=== PATIENT | female | born 1995 | race American Indian/Alaskan Native ===

== ENCOUNTER 2017-07-02 16:23 | Outpatient (CLI) | payer MEDICAID ==
[2017-07-02] MEDS ORDERED: LACTATED RINGERS 500 ML IV ONE (17:13)
[2017-07-02 18:53] VITALS: BP 105/55
[2017-07-02 19:46] LABS: Bilirubin,Urine NEG (Negative); Blood,Urine MOD (Negative); Ketones,Urine 20 mg/dL (Negative); Leukocyte Esterase,Urine TR (Negative); Mucus,Urine FEW /HPF; Nitrite,Urine NEG (Negative); Protein,Urine <15 mg/dL mg/dL (Negative)
== END 2017-07-02 20:15 | disposition home or self-care (01) ==
LOC: TRG 16:23
PROVIDERS: ATTEND Obstetrics & Gynecology Gynecology
DX: O47.02 False labor before 37 completed weeks of gestation, second trimester (principal); Z3A.24 24 weeks gestation of pregnancy
CPT/HCPCS: 59025; 81001; 96360; J7120

== ENCOUNTER 2017-08-19 23:21 | Outpatient (CLI) | payer MEDICAID ==
--- NOTE | 2017-08-19 22:40 | Emergency Department Report ---
ED Abdominal Pain HPI - General Chief Complaint: Dyspnea/Respdistress Stated Complaint: LUDY/CP Time Seen by Provider: 08/19/17 22:32 Source: patient, EMS Mode of arrival: Stretcher Limitations: No Limitations - History of Present Illness Initial Comments: 21-year-old female currently 30 weeks presents to the hospital without a pain and shortness of breath. Symptoms started prior to arrival. Patient felt pain and pressure in her epigastric area followed by pressure and pain under both ribs that felt like a "knot" with shortness of breath during pain episode. EMS reported chest pain but patient states symptoms started in her abdomen first. Patient states that her ribs feels sore after this episode. She no longer feels short of breath and denies any preceding shortness of breath , calf tenderness, leg edema, leg asymmetry, recent travel, history of PE/DVT. 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[place] [employer] - Related Data Previous Rx's Medication Instructions Recorded Last Taken Type Vit-Fe Fumar-FA [ 1 each PO QDAY #90 tablet 06/30/14 11/06/14 20:00 Rx Vitamin] 1 tab Promethazine [Phenergan] 25 mg PO Q6H PRN #20 tablet 06/30/14 Unknown Rx Ferrous Sulfate [Feosol 325 MG tab] 325 mg PO BID #60 tablet 02/13/15 Unknown Rx Ibuprofen [Motrin 800 MG tab] 800 mg PO Q8HR PRN #30 tablet 02/13/15 Unknown Rx Prenat 115/Iron Fum/Folic/Dss 1 tab PO QDAY #30 tab 02/13/15 Unknown Rx [ 19 Tablet] Allergies Allergy/AdvReac Type Severity Reaction Status Date / Time latex Allergy Rash Verified 08/19/17 22:20 ED Review of Systems ROS: Stated complaint: LUDY/CP Other details as noted in HPI Comment: All other systems reviewed and negative Other: Constitutional: No fevers chills Eyes: No eye pain visual changes or discharge ENT: No ear pain or throat pain Neck: Denies pain Respiratory: as per hpi Cardiovascular: as per hpi GI: Denies nausea, vomiting, diarrhea, constipation, melena hematochezia : Denies dysuria Musculoskeletal: Denies back pain, joint swelling Skin: Denies rash, lesions, erythema Neurologic: Denies headache, numbness, weakness Psychiatric: Denies suicidal ideation, hallucinations Hematological/lymphatic: Denies easy bruising, lymphadenopathy ED Past Medical Hx - Past Medical History Previous Medical History?: Yes Hx Hypertension: No Hx Heart Attack/AMI: No Hx Congestive Heart Failure: No Hx Diabetes: No Hx Deep Vein Thrombosis: No Hx Renal Disease: No Hx Sickle Cell Disease: No Hx Seizures: No Hx Asthma: No Hx COPD: No Hx HIV: No Additional medical history: 4 spontanious abortions - Social History Smoking Status: Never Smoker Substance Use Type: Prescribed - Medications Home Medications: Home Medications Medication Instructions Recorded Confirmed Last Taken Type Vit-Fe Fumar-FA [ 1 each PO QDAY #90 tablet 06/30/14 01/16/15 11/06/14 20:00 Rx Vitamin] 1 tab Promethazine [Phenergan] 25 mg PO Q6H PRN #20 tablet 06/30/14 01/16/15 Unknown Rx Ferrous Sulfate [Feosol 325 MG tab] 325 mg PO BID #60 tablet 02/13/15 Unknown Rx Ibuprofen [Motrin 800 MG tab] 800 mg PO Q8HR PRN #30 tablet 02/13/15 Unknown Rx Prenat 115/Iron Fum/Folic/Dss 1 tab PO QDAY #30 tab 02/13/15 Unknown Rx [ 19 Tablet] ED Physical Exam - General Limitations: No Limitations - Other Other exam information: General: No limitations, patient is alert in no acute distress Head exam: Atraumatic, normocephalic Eyes exam: Normal appearance ENT: Moist mucous membrane, normal oropharynx Neck exam: Normal inspection Respiratory exam: Clear to auscultation bilateral, no wheezes, rales, crackles Cardiovascular: Normal rate and rhythm, normal heart sounds Abdomen: abdomen, mild right upper quadrant tenderness, no rebound or guarding Extremity: Full range of motion normal inspection no deformity, no calf tenderness or edema Back: Normal Inspection, full range of motion, no tenderness Neurologic: Alert, oriented x3, cranial nerves intact, no motor or sensory deficit Psychiatric: normal affect, normal mood Skin: Bruising to epigastric area the patient has been present but expanding ED Course Vital Signs 08/19/17 22:20 Temperature 98.2 F Pulse Rate 88 Respiratory 19 Rate Blood Pressure 106/64 O2 Sat by Pulse 98 Oximetry - Reevaluation(s) Reevaluation #1: 08/19/17 22:44 I initiated workup based on his complaint of shortness of breath and chest pain. Patient states that she feels like the pain pain from her stomach and the baby and prefers to go to labor and delivery for monitoring instead versus being in the ED first. I called Dr Staley to discuss workup and he accept pt to be sent to L and D Labs pending. EKG preformed prior to L and D transfer, Vital signs reviewed and in normal range. Pt denies cp or sob at this time - Consultations Consultation #1: 08/20/17 00:50 Case we discussed with Dr. Staley at this time. Patient is a L&D and received terbutaline was caused a heart rate increase. She was diagnosed with contractions and received IV fluids with improvement in symptoms as well. She is being discharged from labor and delivery and is also discharged from our department. ED Medical Decision Making - Lab Data Result diagrams: 08/19/17 22:41 08/19/17 22:41 Lab Results 08/19/17 08/19/17 08/19/17 Range/Units 00:07 22:41 22:41 WBC 15.4 H (4.5-11.0) K/mm3 RBC 3.51 L (3.65-5.03) M/mm3 Hgb 9.4 L (10.1-14.3) gm/dl Hct 29.4 L (30.3-42.9) % MCV 84 (79-97) fl MCH 27 L (28-32) pg MCHC 32 (30-34) % RDW 16.1 H (13.2-15.2) % Plt Count 315 (140-440) K/mm3 Lymph % (Auto) 18.6 (13.4-35.0) % [place] % (Auto) 5.9 (0.0-7.3) % Eos % (Auto) 1.0 (0.0-4.3) % Baso % (Auto) 0.2 (0.0-1.8) % Lymph # 2.8 (1.2-5.4) K/mm3 [place] # 0.9 H (0.0-0.8) K/mm3 Eos # 0.2 (0.0-0.4) K/mm3 Baso # 0.0 (0.0-0.1) K/mm3 Seg Neutrophils % 74.3 H (40.0-70.0) % Seg Neutrophils # 11.4 H (1.8-7.7) K/mm3 PT (12.2-14.9) Sec. INR (0.87-1.13) APTT (24.2-36.6) Sec. Sodium 135 L (137-145) mmol/L Potassium 3.6 (3.6-5.0) mmol/L Chloride 98.3 (98-107) mmol/L Carbon Dioxide 20 L (22-30) mmol/L Anion Gap 20 mmol/L BUN 8 (7-17) mg/dL Creatinine 0.5 L (0.7-1.2) mg/dL Estimated GFR > 60 ml/min BUN/Creatinine Ratio 16 % Glucose 119 H (65-100) mg/dL Calcium 8.6 (8.4-10.2) mg/dL Total Bilirubin 0.30 (0.1-1.2) mg/dL AST 34 (5-40) units/L ALT 15 (7-56) units/L Alkaline Phosphatase 65 (35-129) units/L Total Creatine Kinase 47 (30-135) units/L CK-MB (CK-2) < 1.0 (0.0-4.0) ng/mL CK-MB (CK-2) Rel Index 2.1 (0-4) Troponin T < 0.010 (0.00-0.029) ng/mL NT-Pro-B Natriuret Pep 37.81 (0-450) pg/mL Total Protein 5.9 L (6.3-8.2) g/dL Albumin 3.2 L (3.9-5) g/dL Albumin/Globulin Ratio 1.2 % Urine Color Yellow (Yellow) Urine Turbidity Clear (Clear) Urine pH 7.0 (5.0-7.0) Ur Specific [place] 1.011 (1.003-1.030) Urine Protein <15 mg/dl (Negative) mg/dL Urine Glucose (UA) Neg (Negative) mg/dL Urine Ketones Neg (Negative) mg/dL Urine Blood Mod (Negative) Urine Nitrite Neg (Negative) Urine Bilirubin Neg (Negative) Urine Urobilinogen 4.0 (<2.0) mg/dL Ur Leukocyte Esterase Tr (Negative) Urine WBC (Auto) 4.0 (0.0-6.0) /HPF Urine RBC (Auto) 3.0 (0.0-6.0) /HPF U Epithel Cells (Auto) 11.0 (0-13.0) /HPF 08/19/17 Range/Units 22:41 WBC (4.5-11.0) K/mm3 RBC (3.65-5.03) M/mm3 Hgb (10.1-14.3) gm/dl Hct (30.3-42.9) % MCV (79-97) fl MCH (28-32) pg MCHC (30-34) % RDW (13.2-15.2) % Plt Count (140-440) K/mm3 Lymph % (Auto) (13.4-35.0) % [place] % (Auto) (0.0-7.3) % Eos % (Auto) (0.0-4.3) % Baso % (Auto) (0.0-1.8) % Lymph # (1.2-5.4) K/mm3 [place] # (0.0-0.8) K/mm3 Eos # (0.0-0.4) K/mm3 Baso # (0.0-0.1) K/mm3 Seg Neutrophils % (40.0-70.0) % Seg Neutrophils # (1.8-7.7) K/mm3 PT 14.1 (12.2-14.9) Sec. INR 1.04 (0.87-1.13) APTT 31.2 (24.2-36.6) Sec. Sodium (137-145) mmol/L Potassium (3.6-5.0) mmol/L Chloride (98-107) mmol/L Carbon Dioxide (22-30) mmol/L Anion Gap mmol/L BUN (7-17) mg/dL Creatinine (0.7-1.2) mg/dL Estimated GFR ml/min BUN/Creatinine Ratio % Glucose (65-100) mg/dL Calcium (8.4-10.2) mg/dL Total Bilirubin (0.1-1.2) mg/dL AST (5-40) units/L ALT (7-56) units/L Alkaline Phosphatase (35-129) units/L Total Creatine Kinase (30-135) units/L CK-MB (CK-2) (0.0-4.0) ng/mL CK-MB (CK-2) Rel Index (0-4) Troponin T (0.00-0.029) ng/mL NT-Pro-B Natriuret Pep (0-450) pg/mL Total Protein (6.3-8.2) g/dL Albumin (3.9-5) g/dL Albumin/Globulin Ratio % Urine Color (Yellow) Urine Turbidity (Clear) Urine pH (5.0-7.0) Ur Specific [place] (1.003-1.030) Urine Protein (Negative) mg/dL Urine Glucose (UA) (Negative) mg/dL Urine Ketones (Negative) mg/dL Urine Blood (Negative) Urine Nitrite (Negative) Urine Bilirubin (Negative) Urine Urobilinogen (<2.0) mg/dL Ur Leukocyte Esterase (Negative) Urine WBC (Auto) (0.0-6.0) /HPF Urine RBC (Auto) (0.0-6.0) /HPF U Epithel Cells (Auto) (0-13.0) /HPF - EKG Data -: EKG Interpreted by Me EKG shows normal: sinus rhythm, axis (30), QRS complexes (87), ST-T waves (no stemi/t inv) Rate: normal (96) - EKG Data When compared to previous EKG there are: previous EKG unavailable - Medical Decision Making Plan discussed with patient and family. Labs are pending however, patient continues to deny chest pain or shortness of breath. If labs are within normal limits patient will be medically clear from the ER since EKG without acute abnormality, no signs of hypoxia, tachypnea, or tachycardia. No clinical signs of DVT or leg edema. Lungs clear on examination. Abdominal pain appears to be minimal and questionable associated with possible contraction requiring labor and delivery monitoring. Case rediscussed with Dr. Staley regarding patient is discharged/cleared from the ED. He informed me the patient will also be discharged from labor and delivery and her diagnosis was contractions. She received terbutaline and IV fluids prior to discharge. - Differential Diagnosis contraction/ labor, Critical Care Time: No Critical care attestation.: If time is entered above; I have spent that time in minutes in the direct care of this critically ill patient, excluding procedure time. ED Disposition Clinical Impression: contractions Disposition: DC- TO HOME OR SELFCARE Is pt being admited?: No Condition: Stable Time of Disposition: 00:51 (to be d/nat from labor and delivery)
[2017-08-19 22:58] LABS: Basophils % (Auto) 0.2 % (0.0-1.8); Eosinophils # (Auto) 0.2 K/mm3 (0.0-0.4); Hematocrit 29.4 % (30.3-42.9); Hemoglobin 9.4 gm/dl (10.1-14.3); Lymphocytes # (Auto) 2.8 K/mm3 (1.2-5.4); Lymphocytes % (Auto) 18.6 % (13.4-35.0); Mean Corpuscular HGB Conc 32 % (30-34); Mean Corpuscular Hemoglobin 27 pg (28-32); Mean Corpuscular Volume 84 fl (79-97); Monocytes # (Auto) 0.9 K/mm3 (0.0-0.8); Monocytes % (Auto) 5.9 % (0.0-7.3); Platelet Count 315 K/mm3 (140-440); Red Blood Count 3.51 M/mm3 (3.65-5.03); Red Cell Distribution Width 16.1 % (13.2-15.2)
[2017-08-19 23:07] LABS: INR 1.04 (0.87-1.13)
[2017-08-19 23:08] LABS: Partial Thromboplastin Time 31.2 Sec. (24.2-36.6)
[2017-08-19 23:18] LABS: Alanine Aminotransferase 15 units/L (7-56); Albumin 3.2 g/dL (3.9-5); BUN/Creatinine Ratio 16; Blood Urea Nitrogen 8 mg/dL (7-17); Calcium 8.6 mg/dL (8.4-10.2); Hemolysis Index 6
[2017-08-19 23:29] LABS: Creatine Kinase MB < 1.0 ng/mL (0.0-4.0)
[2017-08-19] MEDS ORDERED: BRETHINE SUB-Q SCH (23:45)
[2017-08-19] MEDS ORDERED: LACTATED RINGERS 1,000 ML IV ONE (23:50)
[2017-08-20 00:25] LABS: Bilirubin,Urine NEG (Negative); Blood,Urine MOD (Negative); Color,Urine Yellow (Yellow); Nitrite,Urine NEG (Negative); Protein,Urine <15 mg/dL mg/dL (Negative)
[2017-08-20 00:27] VITALS: BP 113/62
== END 2017-08-20 01:27 | disposition home or self-care (01) ==
LOC: TRG 23:21 → EDSTATUS 23:27 → TRG 23:39
PROVIDERS: ATTEND Obstetrics & Gynecology
DX: O99.513 Diseases of the respiratory system complicating pregnancy, third trimester (principal); R06.03 Acute respiratory distress; O47.03 False labor before 37 completed weeks of gestation, third trimester; Z3A.30 30 weeks gestation of pregnancy
CPT/HCPCS: 36415; 80053; 81001; 82550; 82553; 83880; 84484; 85025; 85610; 85730; 93005; 93010; J3105; J7120

== ENCOUNTER 2017-10-14 01:02 | Inpatient (IN) | payer MEDICAID, OTHER ==
[2017-10-14] MEDS ORDERED: BRETHINE SUB-Q PRN ×2 (01:48→11:11)
[2017-10-14] MEDS ORDERED: ePHEDrine SULFATE IV PRN ×2 (01:48→11:11)
[2017-10-14] MEDS ORDERED: MINERAL OIL PO PRN ×2 (01:48→11:11)
[2017-10-14] MEDS ORDERED: STADOL IV PRN (01:48)
[2017-10-14] MEDS ORDERED: XYLOCAINE 2% INFILTRATI ONE ×2 (01:48→11:11)
[2017-10-14] MEDS ORDERED: POLYCILLIN/NS 2 GM/100 ML 2 GM/100 ML BAG IV ONE (01:48)
[2017-10-14] MEDS ORDERED: BRETHINE IVP PRN ×2 (01:48→11:11)
[2017-10-14] MEDS ORDERED: PITOCin/NS 20 UNIT/1000ML DRIP 20 UNITS/1,000 ML BAG IV SCH ×3 (02:00→12:00)
[2017-10-14] MEDS: LACTATED RINGERS 1,000 ML IV SCH ×3 (02:32→10:16)
[2017-10-14 02:33] LABS: Hematocrit 26.1 % (30.3-42.9); Hemoglobin 8.7 gm/dl (10.1-14.3); Mean Corpuscular HGB Conc 33 % (30-34); Mean Corpuscular Hemoglobin 26 pg (28-32); Mean Corpuscular Volume 78 fl (79-97); Platelet Count 337 K/mm3 (140-440); Red Blood Count 3.34 M/mm3 (3.65-5.03); Red Cell Distribution Width 15.6 % (13.2-15.2)
[2017-10-14] MEDS: AMPICILLIN/NS 1 GM/50 ML 1 GM/50 ML BAG IV SCH ×2 (06:47→10:01)
[2017-10-14] MEDS ORDERED: PITOCin/NS 30 UNIT/500ML 30,000 MILLIUNITS/500 ML BAG IV ONE (07:36)
[2017-10-14] MEDS ORDERED: PITOCin/NS 30 UNIT/500ML 30 UNITS/500 ML BAG IV SCH ×2 (09:00→12:00)
--- NOTE | 2017-10-14 10:57 | History and Physical Report ---
History of Present Illness Date of examination: 10/14/17 Date of admission: 10/14/17 01:53 Chief complaint: SROM clear fluid @ 2330 last night History of present illness: Pt is a 21yo BF EDC 10/28/17; EGA 38 0/7 weeks presents to L&D complaining of SROM clear fluid @ 2330 followed by irregular contractions. She received care at [facility], however records are not available and GBS is unknown. Past History Past Medical History: no pertinent history Past Surgical History: no surgical history Social history: no significant social history, single - Obstetrical History Expected Date of Delivery: 10/28/17 Actual Gestation: 38 Week(s) 1 Day(s) : 7 Medications and Allergies Allergies Allergy/AdvReac Type Severity Reaction Status Date / Time latex Allergy Rash Verified 08/19/17 22:20 Home Medications Medication Instructions Recorded Confirmed Last Taken Type Vit-Fe Fumar-FA [ 1 each PO QDAY #90 tablet 06/30/14 10/14/17 11/06/14 20:00 Rx Vitamin] 1 tab Promethazine [Phenergan] 25 mg PO Q6H PRN #20 tablet 06/30/14 10/14/17 Unknown Rx Ferrous Sulfate [Feosol 325 MG tab] 325 mg PO BID #60 tablet 02/13/15 10/14/17 Unknown Rx Ibuprofen [Motrin 800 MG tab] 800 mg PO Q8HR PRN #30 tablet 02/13/15 10/14/17 Unknown Rx Prenat 115/Iron Fum/Folic/Dss 1 tab PO QDAY #30 tab 02/13/15 10/14/17 Unknown Rx [ 19 Tablet] Active Meds: Active Medications Butorphanol Tartrate (Stadol) 2 mg IV Q2H PRN PRN Reason: Pain , Severe (7-10) Last Admin: 10/14/17 09:45 Dose: 2 mg Ephedrine Sulfate (Ephedrine Sulfate) 10 mg IV Q2M PRN PRN Reason: Hypotension Ampicillin Sodium (Ampicillin/Ns 1 Gm/50 Ml) 1 gm in 50 mls @ 100 mls/hr IV Q4HR CHRIS; Protocol Last Admin: 10/14/17 10:01 Dose: 100 mls/hr Lactated Ringer's (Lactated Ringers) 1,000 mls @ 125 mls/hr IV DIRECT CHRIS Last Admin: 10/14/17 10:16 Dose: 125 mls/hr Oxytocin/Sodium Chloride (Pitocin/Ns 20 Unit/1000ml Drip) 20 units in 1,000 mls @ 125 mls/hr IV DIRECT CHRIS Oxytocin/Sodium Chloride (Pitocin/Ns 30 Unit/500ml) 30 units in 500 mls @ 1 mls /hr IV TITR CHRIS; Protocol Last Admin: 10/14/17 09:29 Dose: 12 milliunits/min, 12 mls/hr Mineral Oil (Mineral Oil) 30 ml PO QHS PRN PRN Reason: Constipation Terbutaline Sulfate (Brethine) 0.25 mg SUB-Q ONCE PRN PRN Reason: Hyperstimulation/Hypertonicity Terbutaline Sulfate (Brethine) 0.25 mg IVP ONCE PRN PRN Reason: Hyperstimulation/Hypertonicity Review of Systems All systems: negative - Vital Signs Vital signs: Vital Signs Temp Resp 98.9 F 16 10/14/17 01:21 10/14/17 01:21 Temp Pulse Resp BP Pulse Ox 98.4 F 108 H 18 102/63 99 10/14/17 07:23 10/14/17 10:38 10/14/17 10:15 10/14/17 10:06 10/14/17 10:38 - Physical Exam Breasts: Positive: deferred Cardiovascular: Regular rate Lungs: Positive: Clear to auscultation Abdomen: Positive: normal appearance Genitourinary (Female): Positive: normal external genitalia Vagina: Positive: normal moisture Uterus: Positive: enlarged Extremities: Positive: normal - Obstetrical FHR: category 1 Uterine Contraction Monitor Mode: External Cervical Dilatation: 10 Cervical Effacement Percentage: 100 station: +2 Uterine Contraction Pattern: Regular Uterine Tone Measurement Phase: Contraction Uterine Contraction Intensity: Moderate Results Result Diagrams: 10/14/17 Unknown Abnormal lab results 10/14/17 Range/Units Unknown WBC 13.8 H (4.5-11.0) K/mm3 RBC 3.34 L (3.65-5.03) M/mm3 Hgb 8.7 L (10.1-14.3) gm/dl Hct 26.1 L (30.3-42.9) % MCV 78 L (79-97) fl MCH 26 L (28-32) pg RDW 15.6 H (13.2-15.2) % All other labs normal. Assessment and Plan - Patient Problems (1) 40 weeks gestation of Onset Date: 10/14/17 Current Visit: Yes Status: Acute Plan to address problem: A: IUP @ 40 1/7 weeks in labor Unknown GBS P: Admit to L&D for expectant vaginal delivery IV Ampicillin Obtain records
--- NOTE | 2017-10-14 11:02 | Procedure Note ---
OB Delivery Note - Delivery Date of Delivery: 10/14/17 Surgeon: SUZANNE SHEEHAN Estimated blood loss: 200cc - Vaginal Delivery presentation: vertex Delivery position: OP Intrapartum events: none Delivery induction: none Delivery augmentation: pitocin Delivery monitor: external FHT, external uterine Route of delivery: Delivery placenta: spontaneous Delivery cord: 3 umbilical vessels Episiotomy: none Delivery laceration: none Anesthesia: intravenous Delivery comments: Infant delivered OP and placed on Mom's chest for [id number] bonding and delayed cord clamping - Infant A at 1 minute: 8 at 5 minutes: 9 Infant Gender: Male (2783gms)
[2017-10-14] MEDS ORDERED: PHENERGAN PR PRN (11:15)
[2017-10-14] MEDS ORDERED: ZOFRAN IV PRN (11:15)
[2017-10-14] MEDS ORDERED: TUCKS PAD TP PRN (11:15)
[2017-10-14] MEDS ORDERED: TYLENOL PO PRN (11:15)
[2017-10-14] MEDS ORDERED: MILK OF MAGNESIA PO PRN (11:15)
[2017-10-14] MEDS ORDERED: DULCOLAX PR PRN (11:15)
[2017-10-14] MEDS ORDERED: PHENERGAN PO PRN (11:15)
[2017-10-14] MEDS ORDERED: LANSINOH TP PRN (11:15)
[2017-10-14] MEDS ORDERED: BENADRYL PO PRN (11:15)
[2017-10-14] MEDS: NORCO 5/325 PO PRN (11:47)
[2017-10-14] MEDS: MOTRIN PO SCH ×2 (11:49→17:22)
[2017-10-14] MEDS ORDERED: LACTATED RINGERS 1,000 ML IV SCH (12:00)
[2017-10-14] MEDS ORDERED: SODIUM CHLORIDE FLUSH SYRINGE 10 ML IV NR (12:00)
[2017-10-14] MEDS: FEOSOL PO SCH (21:51)
[2017-10-14] MEDS: COLACE PO SCH (21:52)
[2017-10-15] MEDS: MOTRIN PO SCH ×4 (00:11→18:16)
[2017-10-15 00:45] LABS: Hematocrit 28.2 % (30.3-42.9); Hemoglobin 8.9 gm/dl (10.1-14.3)
[2017-10-15] MEDS ORDERED: M-M-R II VACCINE SUB-Q ONE (06:00)
[2017-10-15] MEDS ORDERED: BOOSTRIX IM ONE (06:00)
--- NOTE | 2017-10-15 07:23 | Progress Note ---
Assessment and Plan - Patient Problems (1) 40 weeks gestation of Onset Date: 10/14/17 Current Visit: Yes Status: Resolved (2) (normal spontaneous vaginal delivery) Onset Date: 10/15/17 Current Visit: Yes Status: Resolved Plan to address problem: A: S/P - PPD #1 Doing well Asymptomatic anemia - stable P: May go home tomorrow. Subjective - Subjective Date of service: 10/15/17 Principal diagnosis: s/p - PPD #1 Interval history: Pt is feeling well without complaints. Bleeding improved. Patient reports: appetite normal, voiding normally, pain well controlled, flatus , ambulating normally, no dizzy ambulation, no nauseated [place]: doing well, nursing well, bottle feeding Objective - Vital Signs Latest vital signs: Vital Signs Temp Pulse Resp BP BP Pulse Ox 10/15/17 05:47 20 10/15/17 00:11 18 10/15/17 00:00 98.2 F 65 18 103/52 10/14/17 20:15 98.7 F 66 18 96/62 10/14/17 16:48 97.6 F 77 18 107/57 100 10/14/17 13:00 97.8 F 75 18 103/70 10/14/17 12:49 18 10/14/17 12:47 18 10/14/17 12:09 70 98 10/14/17 12:04 74 98 10/14/17 11:59 70 98 10/14/17 11:55 70 97 10/14/17 11:50 83 94 10/14/17 11:49 111 H 20 92 10/14/17 11:47 20 10/14/17 11:23 79 98 10/14/17 11:19 83 98 10/14/17 11:14 82 98 10/14/17 11:09 91 H 97 10/14/17 11:03 84 100/58 10/14/17 10:38 108 H 99 10/14/17 10:33 105 H 100 10/14/17 10:28 105 H 100 10/14/17 10:23 84 100 10/14/17 10:18 100 H 100 10/14/17 10:15 18 10/14/17 10:13 79 100 10/14/17 10:08 104 H 100 10/14/17 10:06 75 102/63 10/14/17 10:03 77 98 10/14/17 09:45 18 10/14/17 07:29 84 97 10/14/17 07:25 88 103/57 10/14/17 07:23 98.4 F 88 18 103/57 97 Intake and Output 10/14/17 10/15/17 10/15/17 22:59 06:59 14:59 Intake Total 240 Balance 240 Intake: Oral 240 Other: Total, Intake Amount 240 # Voids Void 1 1 - Exam Breasts: Present: deferred Cardiovascular: Present: Regular rate Lungs: Present: Clear to auscultation Abdomen: Present: normal appearance, soft Uterus: Present: normal, firm, fundal height below umbilicus Extremities: Present: normal - Labs Labs: Abnormal lab results 10/14/17 Range/Units 23:44 Hgb 8.9 L (10.1-14.3) gm/dl Hct 28.2 L (30.3-42.9) % Laboratory Tests 10/14/17 10/14/17 10/14/17 23:44 Unknown Unknown WBC 13.8 H RBC 3.34 L Hgb 8.9 L 8.7 L Hct 28.2 L 26.1 L MCV 78 L MCH 26 L MCHC 33 RDW 15.6 H Plt Count 337 RPR Nonreactive
[2017-10-15] MEDS: NORCO 5/325 PO PRN ×2 (09:39→21:51)
[2017-10-15] MEDS ORDERED: PRENATAL VITAMIN PO SCH (10:00)
[2017-10-15] MEDS: FEOSOL PO SCH ×2 (12:18→21:51)
[2017-10-15] MEDS: COLACE PO SCH ×2 (12:19→21:51)
--- NOTE | 2017-10-15 14:31 | Discharge Summary ---
Providers - Providers Date of Admission: 10/14/17 01:53 Date of discharge: 10/16/17 Attending physician: SUZANNE SHEEHAN Primary care physician: SUZANNE SHEEHAN Hospitalization Reason for admission: active labor, rupture of membranes, IUP at term Delivery: Episiotomy: none Laceration: none Other procedures: none complications: none Discharge diagnosis: IUP at term delivered [place] baby: male Hospital course: Unremarkable. Condition at discharge: Good Disposition: DC-01 TO HOME OR SELFCARE - Discharge Diagnoses (1) 40 weeks gestation of Status: Resolved (2) (normal spontaneous vaginal delivery) Status: Resolved Plan - Discharge Medications Prescriptions: Ferrous Sulfate [Feosol 325 MG tab] 325 mg PO BID #60 tablet Ibuprofen [Motrin 600 MG tab] 600 mg PO Q6H #30 tablet Vit-Fe Fumar-FA [ Vitamin] 1 each PO QDAY #30 tablet - Provider Discharge Summary Activity: routine, no sex for 6 weeks, no heavy lifting 4 weeks, no strenuous exercise Diet: routine Instructions: routine Additional instructions: [] Smoking cessation referral if applicable(refer to patient education folder for contact #) [] Refer to [facility] Booklet Call your doctor immediately for: * Fever > 100.5 * Heavy vaginal bleeding ( >1 pad per hour) * Severe persistent headache * Shortness of breath * Reddened, hot, painful area to leg or breast * Drainage or odor from incision. * Keep incision clean and dry at all times and follow doctor's instructions regarding bathing/showering - Follow up plan Follow up: SUZANNE SHEEHAN MD [Primary Care Provider] - 6 Weeks
[2017-10-16] MEDS: MOTRIN PO SCH ×3 (00:01→12:12)
[2017-10-16] MEDS: COLACE PO SCH (12:11)
[2017-10-16] MEDS: FEOSOL PO SCH (12:11)
[2017-10-16 13:35] VITALS: BP 105/62
== END 2017-10-16 13:30 | disposition home or self-care (01) | DRG 775 ==
LOC: TRG 01:02 → LD 01:53 → OB 12:45
PROVIDERS: ADMIT Obstetrics & Gynecology; ATTEND Obstetrics & Gynecology
PROC: 10E0XZZ Delivery of Products of Conception, External Approach (ICD-10-PCS; principal; 2017-10-14)
PROC: 3E0234Z Introduction of Serum, Toxoid and Vaccine into Muscle, Percutaneous Approach (ICD-10-PCS; 2017-10-15)
DX: O99.02 Anemia complicating childbirth (principal); D64.9 Anemia, unspecified; Z3A.38 38 weeks gestation of pregnancy; Z37.0 Single live birth; Z23 Encounter for immunization
CPT/HCPCS: 36415; 85014; 85018; 85027; 86592; 99211; G0463; J0290; J0595; J2590; J7120

== ENCOUNTER 2017-11-08 05:04 | Emergency (ER) | payer MEDICAID ==
[2017-11-08 05:26] VITALS: BP 133/85
== END 2017-11-08 07:55 | disposition left against medical advice (07) ==
LOC: ED 05:04
DX: R07.9 Chest pain, unspecified (principal); Z53.21 Procedure and treatment not carried out due to patient leaving prior to being seen by health care provider
CPT/HCPCS: 93005; 93010

== ENCOUNTER 2018-07-28 02:35 | Outpatient (CLI) | payer MEDICAID ==
[2018-07-28] MEDS ORDERED: LACTATED RINGERS 1,000 ML IV ONE (03:00)
[2018-07-28 03:55] LABS: Bilirubin,Urine NEG (Negative); Blood,Urine MOD (Negative); Color,Urine Yellow (Yellow); Protein,Urine <15 mg/dL mg/dL (Negative)
[2018-07-28] MEDS: BRETHINE SUB-Q PRN ×2 (04:44→05:14)
[2018-07-28] MEDS ORDERED: LACTATED RINGERS 1,000 ML IV SCH (06:00)
[2018-07-28 06:30] VITALS: BP 92/56
== END 2018-07-28 07:09 | disposition home or self-care (01) ==
LOC: TRG 02:35
PROVIDERS: ATTEND Obstetrics & Gynecology
DX: O26.893 Other specified pregnancy related conditions, third trimester (principal); R10.2 Pelvic and perineal pain; Z3A.30 30 weeks gestation of pregnancy
CPT/HCPCS: 36415; 59025; 81001; 82731; 96360; 96372; J3105; J7120; 96361

== ENCOUNTER 2018-08-12 16:00 | Outpatient (CLI) | payer MEDICAID ==
[2018-08-12 16:30] VITALS: BP 91/55
[2018-08-12 17:02] LABS: Bilirubin,Urine NEG (Negative); Blood,Urine SM (Negative); Color,Urine Yellow (Yellow); Mucus,Urine FEW /HPF; Protein,Urine <15 mg/dL mg/dL (Negative)
== END 2018-08-12 17:30 | disposition home or self-care (01) ==
LOC: TRG 16:00
PROVIDERS: ATTEND Obstetrics & Gynecology
DX: O47.03 False labor before 37 completed weeks of gestation, third trimester (principal); Z3A.35 35 weeks gestation of pregnancy
CPT/HCPCS: 59025; 81001

== ENCOUNTER 2018-09-10 05:46 | Inpatient (IN) | payer MEDICAID ==
[2018-09-10] MEDS ORDERED: LACTATED RINGERS 1,000 ML ONE (07:03)
--- NOTE | 2018-09-10 07:34 | History and Physical Report ---
History of Present Illness Date of examination: 09/10/18 Date of admission: 09/10/18 07:18 Chief complaint: Labor History of present illness: Pt is a 22yo BF EDC 09/12/18; EGA 39 5/7 weeks presents to L&D complaining of RUC's q 3-4 mins. She received care at [facility], however records are not available but GBS is Positive per pt. Past History Past Medical History: no pertinent history Past Surgical History: no surgical history Social history: no significant social history, single - Obstetrical History Expected Date of Delivery: 09/12/18 Actual Gestation: 39 Week(s) 5 Day(s) : 8 Medications and Allergies Allergies Allergy/AdvReac Type Severity Reaction Status Date / Time latex Allergy Severe Rash Verified 08/12/18 16:18 Home Medications Medication Instructions Recorded Confirmed Last Taken Type Vit-Fe Fumar-FA [ 1 each PO QDAY #30 tablet 10/15/17 09/10/18 09/10/18 03:00 Rx Vitamin] Ferrous Sulfate [Feosol 325 MG tab] 1 tab PO TID 09/10/18 09/10/18 09/10/18 History Review of Systems All systems: negative - Vital Signs Vital signs: Vital Signs Pulse BP 93 H 105/64 09/10/18 06:05 09/10/18 06:05 Temp Pulse Resp BP Pulse Ox 93 H 105/64 09/10/18 06:05 09/10/18 06:05 - Physical Exam Breasts: Positive: deferred Cardiovascular: Regular rate Lungs: Positive: Clear to auscultation Abdomen: Positive: normal appearance Genitourinary (Female): Positive: normal external genitalia Vagina: Positive: normal moisture Uterus: Positive: enlarged Extremities: Positive: normal - Obstetrical FHR: category 1 Uterine Contraction Monitor Mode: External Cervical Dilatation: 5 (per nurse) Cervical Effacement Percentage: 50 (per nurse) station: -2 Uterine Contraction Pattern: Regular Uterine Tone Measurement Phase: Contraction Uterine Contraction Intensity: Moderate Results Result Diagrams: 09/10/18 08:00 All other labs normal. Assessment and Plan A: IUP @ 39 5/7 week in early labor +GBS P: Admit to L&D for expectant vaginal delivery IV Ampicillin - Patient Problems (1) 39 weeks gestation of Current Visit: Yes Status: Acute
[2018-09-10] MEDS ORDERED: BRETHINE IVP PRN (08:00)
[2018-09-10] MEDS ORDERED: MINERAL OIL PO PRN (08:00)
[2018-09-10] MEDS ORDERED: ZOFRAN IV PRN (08:00)
[2018-09-10] MEDS ORDERED: XYLOCAINE 2% INFILTRATI NR (08:00)
[2018-09-10] MEDS: LACTATED RINGERS 1,000 ML IV SCH ×3 (08:00→19:48)
[2018-09-10] MEDS ORDERED: PITOCin/NS 20 UNIT/1000ML DRIP 20 UNITS/1,000 ML BAG IV SCH (08:00)
[2018-09-10] MEDS ORDERED: PHENERGAN PO PRN (08:00)
[2018-09-10] MEDS ORDERED: STADOL IV PRN (08:00)
[2018-09-10] MEDS ORDERED: SUBLIMAZE IV PRN (08:00)
[2018-09-10] MEDS ORDERED: PITOCin/NS 30 UNIT/500ML 30 UNITS/500 ML BAG IV SCH (08:00)
[2018-09-10] MEDS ORDERED: BRETHINE SUB-Q PRN (08:00)
[2018-09-10 08:51] LABS: Hematocrit 25.8 % (30.3-42.9); Hemoglobin 8.3 gm/dl (10.1-14.3); Mean Corpuscular HGB Conc 32 % (30-34); Mean Corpuscular Volume 74 fl (79-97); Platelet Count 314 K/mm3 (140-440); Red Cell Distribution Width 17.2 % (13.2-15.2)
[2018-09-10] MEDS ORDERED: AMPICILLIN/NS 2 GM/100 ML 2 GM/100 ML BAG IV ONE (09:00)
[2018-09-10] MEDS: AMPICILLIN/NS 1 GM/50 ML 1 GM/50 ML BAG IV SCH ×2 (19:24→23:28)
[2018-09-10] MEDS ORDERED: NARCAN 2 MG/2 ML IV PRN (20:28)
[2018-09-10] MEDS ORDERED: MARCAINE 0.25% INFILTRATI ONE (20:32)
--- NOTE | 2018-09-10 20:57 | Anesthesia Day of Surgery ---
Anesthesia Day of Surgery - Day of Surgery Patient Examined: Yes Patient H&P Reviewed: Yes Patient is NPO: Yes Beta Blockers: No Cardiac Clearance: No Pulmonary Clearance: No Byron's Test: N/A
--- NOTE | 2018-09-10 20:57 | Anesthesia Consultation ---
Anesthesia Consult and Med Hx Date of service: 09/10/18 - Airway Anesthetic Teeth Evaluation: Good ROM Head & Neck: Adequate Mental/Hyoid Distance: Adequate Mallampati Class: Class II Intubation Access Assessment: Good - Pulmonary Exam CTA: Yes - Cardiac Exam Cardiac Exam: RRR - Pre-Operative Health Status ASA Pre-Surgery Classification: ASA2 Proposed Anesthetic Plan: Epidural - Pulmonary Hx Smoking: No Hx Asthma: No Hx Respiratory Symptoms: No SOB: No COPD: No Home Oxygen Therapy: No Hx Pneumonia: No Hx Sleep Apnea: No - Cardiovascular System Hx Hypertension: No Hx Coronary Artery Disease: No Hx Heart Attack/AMI: No Hx Angina: No Hx Percutaneous Transluminal Coronary Angioplasty (PTCA): No Hx Cardia Arrhythmia: No Hx Pacemaker: No Hx Internal Defibrillator: No Hx Valvular Heart Disease: No Hx Heart Murmur: No Hx Peripheral Vascular Disease: No - Central Nervous System Hx Neuromuscular Disorder: No Hx Seizures: No CVA: No Hx Back Pain: No Hx Psychiatric Problems: Yes ( depression) - Gastrointestinal Hx Ulcer: No Hx Gastroesophageal Reflux Disease: Yes - Endocrine Hx Renal Disease: No Hx End Stage Renal Disease: No Hx Cirrhosis: No Hx Liver Disease: No Hx Insulin Dependent Diabetes: No Hx Non-Insulin Dependent Diabetes: No Hx Thyroid Disease: No Hx Hypothyroidism: No Hx Hyperthyroidism: No - Hematic Hx Anemia: Yes Hx Sickle Cell Disease: No - Other Systems Hx Alcohol Use: No Hx Substance Use: No Hx Cancer: No Hx Obesity: No
[2018-09-10] MEDS ORDERED: fentaNYL-BUPIV 2 MCG/ML-0.125% 200 MCG/100 ML BAG EPIDURAL SCH (21:00)
--- NOTE | 2018-09-11 00:29 | Procedure Note ---
OB Delivery Note - Delivery Date of Delivery: 09/11/18 Surgeon: SUZANNE SHEEHAN Estimated blood loss: 100cc - Vaginal Delivery presentation: vertex Delivery position: OP Delivery induction: none Delivery augmentation: rupture of membranes, pitocin Delivery monitor: external FHT, external uterine Route of delivery: Delivery placenta: spontaneous Delivery cord: 3 umbilical vessels Episiotomy: none Delivery laceration: none Anesthesia: epidural Delivery comments: Infant delivered OP and placed on Mom's chest for [id number] bonding and delayed cord clamping, cut by Dad - Infant A at 1 minute: 8 at 5 minutes: 9 Gender: Female (3191gms)
[2018-09-11] MEDS ORDERED: ZOFRAN IV PRN (00:31)
[2018-09-11] MEDS ORDERED: TYLENOL PO PRN (00:31)
[2018-09-11] MEDS ORDERED: DULCOLAX PR PRN (00:31)
[2018-09-11] MEDS ORDERED: PHENERGAN PR PRN (00:31)
[2018-09-11] MEDS ORDERED: MILK OF MAGNESIA PO PRN (00:31)
[2018-09-11] MEDS ORDERED: TUCKS PAD TP PRN (00:31)
[2018-09-11] MEDS ORDERED: BENADRYL PO PRN (00:31)
[2018-09-11] MEDS ORDERED: PHENERGAN PO PRN (00:31)
[2018-09-11] MEDS ORDERED: LANSINOH TP PRN (00:31)
[2018-09-11] MEDS ORDERED: SODIUM CHLORIDE FLUSH SYRINGE 10 ML IV NR (01:00)
[2018-09-11] MEDS ORDERED: PITOCin/NS 20 UNIT/1000ML DRIP 20 UNITS/1,000 ML BAG IV SCH (01:00)
[2018-09-11] MEDS: IBUPROFEN PO SCH ×4 (02:28→22:38)
[2018-09-11] MEDS: NORCO 5/325 PO PRN ×3 (06:02→22:40)
[2018-09-11] MEDS: FEOSOL PO SCH ×2 (09:56→22:40)
[2018-09-11] MEDS: COLACE PO SCH ×2 (09:56→22:40)
[2018-09-11] MEDS: PRENATAL VITAMIN PO SCH (09:56)
--- NOTE | 2018-09-11 10:10 | Post Anesthesia Evaluation ---
- Post Anesthesia Evaluation Patient Participated: Yes Airway Patent: Yes Stable Respiratory Function: Yes Nausea/Vomiting: No Temp > 96.8F: Yes Pain Manageable: Yes Adequeate Hydration: Yes Anesthesia Complications: No Patient on Ventilator: No
[2018-09-11 13:48] LABS: Hematocrit 26.8 % (30.3-42.9); Hemoglobin 8.4 gm/dl (10.1-14.3)
[2018-09-12] MEDS ORDERED: BOOSTRIX IM ONE (06:00)
[2018-09-12] MEDS ORDERED: M-M-R II VACCINE SUB-Q ONE (06:00)
[2018-09-12] MEDS: FEOSOL PO SCH (11:45)
[2018-09-12] MEDS: NORCO 5/325 PO PRN (11:50)
--- NOTE | 2018-09-12 14:55 | Progress Note ---
Assessment and Plan A: PPD#1 s/p Asymptomatic Anemia Stable P: Routine PP orders Discharge home today Subjective - Subjective Date of service: 09/12/18 Principal diagnosis: PPD#1 s/p Interval history: See H&P and delivery note Patient reports: appetite normal, voiding normally, pain well controlled, flatus, ambulating normally, no bowel movement [place]: doing well, nursing well Objective - Vital Signs Latest vital signs: Vital Signs Temp Pulse Resp BP BP Pulse Ox 09/12/18 08:41 98.4 F 68 18 115/72 99 09/11/18 23:50 98.5 F 64 20 100/65 09/11/18 16:27 97.7 F 64 18 101/66 Intake and Output 09/11/18 09/12/18 09/12/18 23:59 07:59 15:59 Intake Total 360 720 Balance 360 720 Intake: Oral 360 Intake, Free Water 720 Other: Total, Intake Amount 360 # Voids Void 1 1 - Exam Breasts: Present: normal, Cardiovascular: Present: Regular rate, Normal S1, Normal S2, No murmurs Lungs: Present: Clear to auscultation, Normal air movement Abdomen: Present: normal appearance, soft, normal bowel sounds. Absent: distention Vulva: both: normal Uterus: Present: firm, fundal height at umbilicus Extremities: Present: normal Deep Tendon Reflex Grade: Normal +2
--- NOTE | 2018-09-12 14:57 | Discharge Summary ---
Providers - Providers Date of Admission: 09/10/18 07:18 Date of discharge: 09/12/18 Attending physician: SUZANNE SHEEHAN Primary care physician: SUZANNE SHEEHAN Hospitalization Reason for admission: active labor, IUP at term Delivery: Procedure details: See H&P and delivery note Episiotomy: none Laceration: none Other procedures: none complications: none Discharge diagnosis: IUP at term delivered baby: female Condition at discharge: Good Disposition: DC-01 TO HOME OR SELFCARE Plan - Provider Discharge Summary Activity: routine, no sex for 6 weeks, no heavy lifting 4 weeks, no strenuous exercise Diet: routine Instructions: routine Additional instructions: [] Smoking cessation referral if applicable(refer to patient education folder for contact #) [] Refer to [facility]'s [facility] Booklet Call your doctor immediately for: * Fever > 100.5 * Heavy vaginal bleeding ( >1 pad per hour) * Severe persistent headache * Shortness of breath * Reddened, hot, painful area to leg or breast * Drainage or odor from incision. * Keep incision clean and dry at all times and follow doctor's instructions regarding bathing/showering - Follow up plan Follow up: SUZANNE SHEEHAN MD [Primary Care Provider] - 6 Weeks
[2018-09-12] MEDS: PRENATAL VITAMIN PO SCH (15:54)
[2018-09-12 16:21] VITALS: BP 104/70
== END 2018-09-12 17:43 | disposition home or self-care (01) | DRG 775 ==
LOC: TRG 05:46 → LD 07:18 → OB 09-11 02:04
PROVIDERS: ADMIT Obstetrics & Gynecology; ATTEND Obstetrics & Gynecology
PROC: 10E0XZZ Delivery of Products of Conception, External Approach (ICD-10-PCS; principal; 2018-09-11)
PROC: 3E0R3BZ Introduction of Anesthetic Agent into Spinal Canal, Percutaneous Approach (ICD-10-PCS; 2018-09-11)
PROC: 00HU33Z Insertion of Infusion Device into Spinal Canal, Percutaneous Approach (ICD-10-PCS; 2018-09-11)
PROC: 3E0234Z Introduction of Serum, Toxoid and Vaccine into Muscle, Percutaneous Approach (ICD-10-PCS; 2018-09-12)
DX: O99.824 Streptococcus B carrier state complicating childbirth (principal); O99.62 Diseases of the digestive system complicating childbirth; K21.9 Gastro-esophageal reflux disease without esophagitis; O90.81 Anemia of the puerperium; D64.9 Anemia, unspecified; Z3A.39 39 weeks gestation of pregnancy; Z37.0 Single live birth; Z23 Encounter for immunization; Z91.040 Latex allergy status
CPT/HCPCS: 36415; 85014; 85018; 85027; 86592; 86850; 86900; 86901; G0378; J0290; J2590; J7120